=== PATIENT | male | born 1980 | race American Indian/Alaskan Native ===

== ENCOUNTER 2021-11-19 13:30 | Emergency (ER) | payer SELFPAY ==
[2021-11-19 16:11] VITALS: BP 132/68
[2021-11-19] MEDS ORDERED: LIDOCAINE-MPF (1%) 10 MG/1 ML VIAL 5 ML INFILTRATI ONE (16:25)
--- NOTE | 2021-11-19 16:29 | Emergency Department Report ---
ED Male HPI - General Chief complaint: Urogenital-Male Stated complaint: STD Time Seen by Provider: 11/19/21 16:19 Source: patient Mode of arrival: Ambulatory Limitations: No Limitations - History of Present Illness Initial comments: 41-year-old -[place] Citizen male presents to the emergency room stating he was exposed to gonorrhea. Patient admits to having 3 weeks of symptoms. He admits to penile discharge and dysuria. Patient denies any fever abdominal pain no nausea no vomiting. States he is not allergic to any medications. MD Complaint: penile discharge, dysuria Onset/Timin -: week(s) Location: penis Radiation: none Severity scale (0 -10): 2 Quality: burning Consistency: intermittent Improves with: none Worsens with: urination discharge - Related Data Sexually active: Yes Previous Rx's Medication Instructions Recorded Last Taken Type DOXYCYCLINE Hyclate [Vibramycin 100 mg PO Q12HR 10 Days #20 capsule 11/19/21 Unknown Rx CAP] Allergies Allergy/AdvReac Type Severity Reaction Status Date / Time No Known Allergies Allergy Verified 11/19/21 16:09 ED Review of Systems ROS: Stated complaint: STD Other details as noted in HPI Comment: All other systems reviewed and negative ED Past Medical Hx - Past Medical History Previous Medical History?: No - Medications Home Medications: Home Medications Medication Instructions Recorded Confirmed Last Taken Type DOXYCYCLINE Hyclate [Vibramycin 100 mg PO Q12HR 10 Days #20 capsule 11/19/21 Unknown Rx CAP] ED Physical Exam - General Limitations: No Limitations General appearance: alert, in no apparent distress - Head Head exam: Present: atraumatic, normocephalic - Eye Eye exam: Present: normal appearance, EOMI - ENT ENT exam: Present: normal external ear exam - Neck Neck exam: Present: normal inspection, full ROM - Respiratory Respiratory exam: Absent: respiratory distress - Cardiovascular Cardiovascular Exam: Present: regular rate - Extremities Exam Extremities exam: Present: normal inspection - Back Exam Back exam: Present: normal inspection - Neurological Exam Neurological exam: Present: alert, oriented X3, normal gait - Psychiatric Psychiatric exam: Present: normal affect, normal mood - Skin Skin exam: Present: warm, dry, intact, normal color. Absent: rash ED Course Vital Signs 11/19/21 16:10 Temperature 98.0 F Pulse Rate 81 Respiratory 16 Rate Blood Pressure 132/68 [Right] O2 Sat by Pulse 100 Oximetry ED Medical Decision Making - Medical Decision Making 41-year-old -[place] Citizen male presents to the emergency room stating he was exposed to gonorrhea. Patient admits to having 3 weeks of symptoms. He admits to penile discharge and dysuria. Patient denies any fever abdominal pain no nausea no vomiting. States he is not allergic to any medications. Penile discharge concern for STD. Patient be given Rocephin 1 g IM. He will be discharged on doxycycline 100 mg p.o. twice daily for 10 days. Instructed patient to follow-up at the health department for full STD evaluation. Discussed the patient to refrain from intercourse for the next 2 weeks after his partner has been evaluated and treated. Critical care attestation.: If time is entered above; I have spent that time in minutes in the direct care of this critically ill patient, excluding procedure time. ED Disposition Clinical Impression: Concern about STD in male without diagnosis, Abnormal penile discharge Disposition: 01 HOME / SELF CARE / HOMELESS Is pt being admited?: No Does the pt Need Aspirin: No Condition: Stable Instructions: Safe Sex, Urethritis, Adult Additional Instructions: Please complete antibiotics as prescribed. Increase your fluid intake advance her diet as tolerated. Follow-up at the health department for full STD evaluation which should include syphilis herpes hepatitis HIV syphilis gonorrhea and chlamydia. Please refrain from intercourse until your partner is tested and treated in 2 weeks after completion of medication. Prescriptions: DOXYCYCLINE Hyclate [Vibramycin CAP] 100 mg PO Q12HR 10 Days #20 capsule Referrals: [facility] [Outside] - 3-5 Days Forms: Work/School Release Form(ED) Time of Disposition: 16:29
== END 2021-11-19 16:54 | disposition home or self-care (01) ==
LOC: ED 13:30
DX: R36.9 Urethral discharge, unspecified (principal); Z20.2 Contact with and (suspected) exposure to infections with a predominantly sexual mode of transmission
CPT/HCPCS: 96372; 99282; J0696; J3490